=== PATIENT | female | born 1975 | race African-American/Black ===

== ENCOUNTER 2023-03-30 14:23 | Outpatient (CLI) | payer BC, SELFPAY ==
[2023-03-30 20:07] LABS: Hematocrit 37.4 % (37.0-47.0); Hemoglobin 11.6 g/dL (12.0-15.0); Mean Corpuscular Hemoglobin 27.6 pg (26-34); Mean Corpuscular Volume 88.8 fl (80-100); Mean Platelet Volume 11.1 fl (7.4-10.4); Platelet Count Result 278 k/mm3 (150-375); Red Blood Count 4.21 M/mm3 (4.2-5.4); White Blood Count 7.1 K/mm3 (4.5-10.0)
[2023-03-30 20:25] LABS: Alanine Aminotransferase 24 U/L (6-35); Albumin Level 4.2 g/dL (3.5-5.1); Alkaline Phosphatase 98 U/L (38-126); Anion Gap 2 mmol/L (8-16); Aspartate Amino Transferase 60 U/L (14-36); Bilirubin,Total 0.5 mg/dL (0.2-1.3); Blood Urea Nitrogen 11 mg/dL (7-17); Carbon Dioxide 31 mmol/L (22-30); Chloride 104 mmol/L (98-107); Cholesterol 263 mg/dL (0-200); Estimated Glomerular Filt Rate > 60; Glucose 96 mg/dL (65-110); HDL Direct 67 mg/dL; Potassium 3.7 mmol/L (3.4-5.0); Sodium 137 mmol/L (137-145); Triglycerides 116 mg/dL (<150)
[2023-03-30 20:36] LABS: LDL Cholesterol Direct 141 mg/dL
[2023-03-30 20:53] LABS: Thyroid Stimulating Hormone 0.919 uIU/mL (0.465-4.680)
== END 2023-03-30 14:24 | disposition home or self-care (01) ==
LOC: ANHGOSHLAB 14:24
PROVIDERS: PCP Family Medicine; Visit Provider Family Medicine
DX: E66.9 Obesity, unspecified (principal); Z79.899 Other long term (current) drug therapy
CPT/HCPCS: 36415; 80053; 80061; 84443; 85027

== ENCOUNTER 2024-08-30 14:24 | Outpatient (CLI) | payer OTHER, SELFPAY ==
--- NOTE | ~2024-08-30 | XR_ITS ---
Left ankle Technique: AP and lateral views were obtained. Clinical History: Pain Findings: No acute fracture or dislocation is seen. Osseous alignment is anatomic. Ankle mortise and other visualized joint spaces are preserved. Soft tissues are otherwise unremarkable. Impression: Unremarkable left ankle. Reviewed, dictated and finalized at location . Impression: Unremarkable left ankle.
--- NOTE | ~2024-08-30 | XR_ITS ---
Left foot Technique: AP and lateral views were obtained. Clinical History: Pain Findings: No acute fracture or dislocation is seen. Osseous alignment is anatomic. Joint spaces are p reserved without erosive or degenerative change. Soft tissues are unremarkable. Impression: Unremarkable left foot radiographs. Reviewed, dictated and finalized at [facility]. Impression: Unremarkable left foot radiographs.
== END 2024-08-30 14:25 | disposition home or self-care (01) ==
LOC: GOSHIMG 14:24
PROVIDERS: PCP Nurse Practitioner; Visit Provider Nurse Practitioner
DX: M79.672 Pain in left foot (principal); M25.572 Pain in left ankle and joints of left foot
CPT/HCPCS: 73600; 73620

== ENCOUNTER 2024-09-13 01:36 | Day surgery (SDC) | payer OTHER, SELFPAY ==
[2024-09-08 13:05] VITALS: BMI 33.2
--- OUTSIDE RECORDS SUMMARY | 2024-09-13 01:39 | XMS_ITS | Clinical Summary ---
Author Organization [facility] Address [address] [place] [address] Care Team Providers Care Securities Supervisor Name Role Phone Reji Kulkarni DO Primary Care Provider [phone] Source Comments [facility],non-owned Affiliates and Associated Physician Practices is amultiple site organization consisting of ambulatory clinics and hospital sitesin [place], [place], [place] and [place]. This disclosure is being madepursuant to the Care Everywhere program and may not contain all information available regarding this patient. Last updated 18.[facility] [employer] Allergies No known active allergies Medications * Be aware that medications may not be up to date on this document. Alwaysverify current medications with the patient. CABERGOLINE PO Take 0.5 Tabs by mouth every 7 days Active methylPREDNISol one (MEDROL DOSEPAK) 4 MG tablet 1 dose pack PO as directed 1 Each 04/25/2016 Active Active Problems Problem Noted Date Diagnosed Date Anxiety 02/09/2007 Enlarged thyroid 02/09/2007 Asthma 02/09/2007 Family History Medical History Relation Name Comments Hypertension Mother Relation Name Status Comments Mother Social History Tobacco Use Types Packs/Day Years Used Date Smoking Tobacco: Every Day Cigarettes Smokeless Tobacco: Never Alcohol Use Standard Drinks/Week Comments Yes 0 (1 standard drink = 0.6 oz pur e alcohol) Comments Unknown Sex and Gender Information Value Date Recorded Sex Assigned at Not on file Legal Sex Female 5:46 AM PLUCK TRIMMER Gender Identity Not on file Sexual Orientation Not on file Last Filed Vital Signs Vital Sign Reading Time Taken Comments Blood Pressure 118/78 11/06/2017 3:57 PM CDT Pulse 88 11/06/2017 3:57 PM CDT Temperature 37.2 C (98.9 F) 11/06/2017 3:57 PM CDT Respiratory Rate 16 11/06/2017 3:57 PM CDT Oxygen Saturation 98% 11/06/2017 3:57 PM CDT Inhaled Oxygen Concentration - - Weight 71.2 kg (157 lb) 11/06/2017 3:57 PM CDT Height 152.4 cm (5') 11/06/2017 3:57 PM CDT Body Mass Index 30.66 11/06/2017 3:57 PM CDT Plan of Treatment Health Maintenance Due Date Last Done Comments COLOGUARD (AGES 45-75) - COL ON CA SCREENING 1975 COLON MONITORING 1975 COLONOSCOPY - COLON CA SCREENING 1975 CT COLONOGRAPHY - COLON CA SCREENING 1975 Colorectal Cancer Screening 1975 FIT - COLON CA SCREENING 1975 FLEX SIG - COLON CA SCREENING 1975 LIPID TESTING 1975 MAMMOGRAM 1975 HIV SCREENING 1990 HEPATITIS C SCREENING 01/06/1993 DTAP/TDAP/TD VACCINES (1 - Tdap) 1994 HEPATITIS B VACCINE (1 of 3 - 19+ 3-dose series) 1994 SCREENING FOR DIABETES 11/06/2017 COVID-19 VACCINE (1 - 2023-2 5 season) 2024 DEPRESSION SCREENING 06/01/2024 ZOSTER VACCINE (1 of 2) 2025 INFLUENZA VACCINE (Season Ended) 2025 HIB VACCINE Aged Out No longer eligi ble based on patient's age to complete this topic HPV VACCINE Aged Out No longer eligi ble based on patient's age to complete this topic MENINGOCOCCAL (Group B) VACC INE SHARED DECISION-MAKING Aged Out No longer eligibl e based on patient's age to complete this topic MENINGOCOCCAL GROUPS A/C/Y/W VACCINE Aged Out No longer eligible b ased on patient's age to complete this topic Insurance ANTH Care Teams Securities Supervisor Relationship Specialty Start Date End Date Reji Kulkarni DO [address] [place] [address] PCP - General 01/17/09
--- OUTSIDE RECORDS SUMMARY | 2024-09-13 01:39 | XMS_ITS ---
Author Organization [facility] Address [address] [facility] [address] [place] [address] Care Team Providers Care Strip Machine Operator Name Role Phone Alejandra Bacon Unavailable [phone] zzzzMigration, zzzzProvider Unavailable Unav ailable REASON FOR VISIT EMR-Tristin Encounters Encounter Location Date Provider Diagnosis [facility] [address] [facility] [address] [place] [address] 03/21/2023 zzzzProvider zzzzMigration Plan Of Treatment Medication Medication Name Sig Start Date Stop Date Notes Meloxicam 15 MG take 1 tablet (15 mg ) by oral route once daily for 30 days Oral 1 for 30 07/30/2020 09/28/2020 Progress Notes * Ulysses CURTISDOB:1975 (49 yo F)Acc No.[id number]:03/21/2023 Patient: Ulysses GALINDO :1975 A ge:48 Y S ex:Female Address:[address] [place] [id number] * Refills Stop Meloxicam Tablet, 15 MG, Oral, 30, take 1 tablet (15 mg) by oral route once daily for 30 days, , 30 Subjective: * Chief Complaints: * E MR-Tristin * Medical History: * Surgical History: * Hospitalization/Major Diagno stic Procedure: * Medications: Objective: * Vitals: * Physical Examination: Assessment: Plan: * Treatment: * Procedure Codes: * true * Date: Generated for Tiagoi ng/Faxing/eTransmitting on: 0 09/13/2024 01:39 AM CDT
--- OUTSIDE RECORDS SUMMARY | 2024-09-13 01:39 | XMS_ITS | CONTINUITY OF CARE DOCUMENT ---
Author Name wyatt schneider Address Unknown Organization [facility] Address [address] [place] [address] Phone [phone] Care Team Providers Care Doctor Of Veterinary Medicine Name Role Phone Kush WRAY, Chris Unavailable [phone] INSURANCE PROVIDERS Payer name Policy type / Coverage type [employer] red constitution party ID [employer] OPEN ACCESS Other [id number]
--- OUTSIDE RECORDS SUMMARY | 2024-09-13 01:39 | XMS_ITS ---
Author Organization [facility] kacie Address [address] [facility] [address], [place] [address] Care Team Providers Care Account Executive Name Role Phone Alejandra Bacon Unavailable [phone] zzzzMigration, zzzzProvider Unavailable Unav ailable Allergies No Known Allergies REASON FOR VISIT EMR-[facility] Medications Medication SIG (Take, Route, Frequency, Duration) Notes Start Date End Date Status Flexeril 10 mg take 1 at bedtime - *Reorder fro m Medispan for eRx and Interaction Alerts* Active Cabergoline 0.5 MG take 1/2 tablet once a week Oral Active Ibuprofen 800 MG prn Oral Act sebastian Encounters Encounter Location Date Provider Diagnosis [facility] [address] [facility] [address] [place] [address] 03/22/2023 zzzzProvider zzzzMigration Plan Of Treatment No Information Progress Notes * Ulysses CURTISDOB:1975 (49 yo F)Acc No.[id number]:03/22/2023 Patient: Ulysses GALINDO :1975 A ge:48 Y S ex:Female Address:[address] [place] [address], [id number] Subjective: * Chief Complaints: * E MR-Tristin * Medical History: * Surgical History: T ubal Ectopic; 2020-07-30 * Hospitalization/Major Diagno stic Procedure: * Family History: M igrated Family History: Breast cancer , Rheumatoid arthritis , Thyroid disease . * Social History: M igrated Social History: M igrated Social History: :: No Children , Exercise :: None Lately , Marital Status :: , Substance Use :: Tobacco :: Current every day :: note : 07/30/2020 - 1 pack daily:: Quantity :: 1pk/day , Substance Use :: Wine :: Current some day :: note : 07/30/2020 - 2 drinks per week:: Quantity :: 2/week. * Medications: T akingFlexeril 10 mg take 1 at bedtime - , Notes to Pharmacist: *Reorder from [facility] for eRx and Interaction Alerts*Ibuprofen 800 MG Tablet prn Oral Cabergoline 0.5 MG Tablet take 1/2 tablet once a week Oral Taking Flexeril 10 mg take 1 at bedtime - , Notes to Pharmacist: *Reorder from [facility] for eRx and Interaction Alerts*Taking Ibuprofen 800 MG Tablet prn Oral Taking Cabergoline 0.5 MG Tablet take 1/2 tablet once a week Oral * Allergies: N .K.D.A.no[Allergies Verified] Objective: * Vitals: * Physical Examination: Assessment: Plan: * Treatment: * Procedure Codes: * true * Date: Generated for Fernanda escobedo/Steven/Teresa on: 0 09/13/2024 01:39 AM CDT
--- OUTSIDE RECORDS SUMMARY | 2024-09-13 01:39 | XMS_ITS | Clinical Summary ---
Author Organization [facility] Address [address] [place] [address] Phone Care Team Providers Care Visual Basic Programmer Name Role Phone Phu Gallegos MD Primary Care Provider [phone] Social History Tobacco Use Types Packs/Day Years Used Date Smoking Tobacco: Never Assessed Comments Unknown Sex and Gender Information Value Date Recorded Sex Assigned at Not on file Legal Sex Female 10:47 PM CDT Gender Identity Not on file Sexual Orientation Not on file Plan of Treatment Health Maintenance Due Date Last Done Comments Hepatitis C Virus (HCV) Screening 1975 TdaP Immunization 1975 Hepatitis B Immunization (1 of 3 - 19+ 3-dose series) 1994 Pap Smear 01/12/1996 Cervical Cancer Screening (CCS) 2005 HPV/Cotest 2005 Discussion re Starting/Frequ ency of Mammograms 2015 Colonoscopy 01/12/2020 Colorectal Cancer Screening 01/12/2020 Influenza Immunization (#1) 2024 SARS-COV-2 Immunization ( season) 2024 Respiratory Syncytial Virus (RSV) Immunization (Adult) (1 - 1-dose 75+ series) 2050 Meningococcal Immunization (ACWY) Aged Out No longer eligible based on patient's age to complete this topic Pneumococcal Immunization Combined Aged Out No longer eligible based on patient's age to complete this topic Rotavirus Immunization Aged Out No lo nger eligible based on patient's age to complete this topic Insurance [facility] Care Teams Visual Basic Programmer Relationship Specialty Start Date End Date Phu Gallegos MD PCP - General Internal Medicine 05/11/15
--- OUTSIDE RECORDS SUMMARY | 2024-09-13 01:39 | XMS_ITS | Clinical Summary ---
Author Organization [facility] [address] [place] [address] Care Team Providers Care News Producer Name Role Phone GirmamckenzieAry guy Primary Care Provider [phone] Allergies No known active allergies Medications ibuprofen (ADVIL,MOTRIN) 400 mg tablet take 1 tablet by oral route every 4 - 6 hours as needed 0 0 07/27/2013 Active rosuvastatin (CRESTOR) 10 mg tablet daily. Active fluticasone (FLONASE) 50 mcg/actuation nasal spray daily. Active cetirizine (ZyrTEC) 10 mg tablet daily. 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 Assessment & Plan (12/29/2019 2:38 PM CDT): Check prolactin Send rx for Cabergoline Consider MRI, if elevated prolactin Assessment & Plan (06/08/2018 1:51 PM AIRLINE STEWARDESS): Check prolactin levels Adjust dose of Cabergoline if indicated If higher prolactin, will consider repeating pituitary MRI Assessment & Plan (02/24/2017 2:52 PM CDT): Check prolactin levels Continue Cabergoline ( pt prefers to stay on it ) Enlarged thyroid 02/09/2007 Assessment & Plan (06/08/2018 1:50 PM AIRLINE STEWARDESS): Check TSH Ultrasound performed today Anxiety 02/09/2007 Asthma 02/09/2007 Encounters Date Type Department Care Team Description 08/18/2024 3:15 PM CDT - 08/18/2024 11:59 PM CDT Hospital Encounter [facility] [address] [place] [id number] Screening mammogram, encounter for Discharge Disposition: Discharge to home or self care from Last 3 Months Immunizations Immunization Administration Dates Next Due Tdap 03/30/2023 Medical History Medical History Date Comments Hx Other Medical Thyroid nodule ( had FNA done ) Smoking Family History Medical History Relation Name Comments Breast cancer Mother Thyroid disease Mother Thyroid dise ase; Breast cancer Paternal Grandmother Relation Name Status Comments Mother Paternal Grandmother Social History Tobacco Use Types Packs/Day Years Used Date Smoking Tobacco: Every Day Cigarettes Smokeless Tobacco: Current Alcohol Use Standard Drinks/Week Comments Yes 0 (1 standard drink = 0.6 oz pur e alcohol) PHQ-2 Answer Date Recorded PHQ-2 Total Score (If total score is 3 or more points, staff should administer the PHQ-9) 2 12/29/2019 Comments No Sex and Gender Information Value Date Recorded Sex Assigned at Not on file Legal Sex Female 3:10 AM AIRLINE STEWARDESS Gender Identity Not on file Sexual Orientation Not on file Obstetrics History Para Term AB IAB SAB Ectopic Multiple Livin g Live Births 7 0 0 7 0 0 Date Outcome GA Total Labor Labor/2nd/3rd Weight Sex Type Anes PTL Anastasia A1 A5 Name Clin AB AB AB AB AB AB AB Last Filed Vital Signs Vital Sign Reading Time Taken Comments Blood Pressure 150/93 06/21/2020 8:00 PM AIRLINE STEWARDESS Pulse 77 06/21/2020 8:00 PM AIRLINE STEWARDESS Temperature 36.5 C (97.7 F) 06/21/2020 3:34 PM AIRLINE STEWARDESS Respiratory Rate 18 06/21/2020 3:34 PM AIRLINE STEWARDESS Oxygen Saturation 100% 06/21/2020 8:00 PM AIRLINE STEWARDESS Inhaled Oxygen Concentration - - Weight 74.8 kg (165 lb) 08/18/2024 3:25 PM CDT Height 152.4 cm (5') 08/18/2024 3:25 PM CDT Body Mass Index 32.22 08/18/2024 3:25 PM CDT Plan of Treatment Health Maintenance Due Date Last Done Comments Colon Cancer Screening-Colonoscopy 1975 Hepatitis C Screening 1975 Hepatitis B Screening 1993 Pneumococcal vaccine <65 (1 of 2 - PCV) 1994 Cervical Cancer Screening 04/01/2019 04/01/2018 Regular Well Visit/Exam 18-64 04/01/2019 04/01/2018 Depression Screening 12/28/2020 12/29/2019, 02/25/20 17 Influenza Vaccine (#1) 2024 Breast Cancer Screening-Mammogram 08/18/2025 08/18/2024, 05/14/2023, 01/08/2021 DTaP/Tdap/Td Vaccine (2 - Td or Tdap) 03/30/2033 Procedures Procedure Name Priority Date/Time Associated Diagnosis Comments SCREENING MAMMOGRAM BILATERAL W KUN Schedule Routine, Read Routine (OP Routine) 08/18/2024 3:30 PM CDT Screening mammogram, encounter for IMAGING PAP AND HPV MRNA E6/E7 Routine 04/01/2018 9:59 AM CDT Well woman exam from Last 3 Months or Most Recently Relevant to Health Maintenance Results * Screening Mammogram Bilateral W Kun (08/18/2024 3:30 PM CDT) Anatomical Region Laterality Modality Breast Bilateral Mammography 08/18/2024 6:49 PM CDT Impressions 08/18/2024 6:49 PM CDT There is no mammographic evidence to suggest malignancy. The patient may continue screening mammography as per ACR guidelines. FINAL ASSESSMENT: BI-RADS Category 1: Negative. Electronically signed by: Radha Hopkins M.D. Narrative 08/18/2024 6:49 PM CDT EXAMINATION: BILATERAL SCREENING MAMMOGRAM WITH TOMOGRAPHY HISTORY: Screening. COMPARISON(S): 2022 and 2020 TECHNIQUE: Full-field 2D images and digital tomosynthesis images were obtained. CAD was utilized. BREAST PARENCHYMAL COMPOSITION: There are scattered areas of fibroglandular density. FINDINGS: There are no suspicious masses. No suspicious calcifications are seen. There is no unexplained architectural distortion. There is no skin thickening seen. There are no mammographically abnormal lymph nodes seen in the axillae or elsewhere. us Self Screening Mammogram IMG MAMMO PROCEDURES Fi nal Result * Imaging Pap and HPV mRNA E6/E7 (04/01/2018 9:59 AM CDT) Report status CANCELED [facility] - Comment:Result canceled by benson haque ancillary CLINICAL INFORMATION: [facility] [place] Comment:Information not prov ided LMP [facility] [place] Comment:INFORMATION NOT PROV IDED Previous Pap [facility] [place] Comment:INFORMATION NOT PROV IDED Prev. Bx [facility] [place] Comment:INFORMATION NOT PROV IDED SOURCE: [facility] [place] Comment:Information not prov ided Pap, specimen adequacy [facility] - Comment: Satisfactory for evaluation. Endocervical/transformation zone component absent. Age and/or menstrual status not provided Pap, general categorization [facility]CELED [facility] [place] Comment:Result canceled by benson haque ancillary HPV interp [facility] - Comment:Negative for intraep ithelial lesion or malignancy. Infection: [facility] - Comment: Shift in vaginal roseline suggestive of bacterial vaginosis. COMMENTS [facility] - Comment: This Pap test has been evaluated with computer assisted technology. Cosmetics Supervisor [facility] - Comment: MMW, CT(ASCP) CT screening location: [place] [address] [place] [address] Review document control specialist CANCELED [facility] - Comment:Result canceled by benson haque ancillary Pathologist CANCELED [facility] [place] Comment:Result canceled by benson haque ancillary Comment [facility] - Comment: EXPLANATORY NOTE: The Pap is a screening test for cervical cancer. It is not a diagnostic test and is subject to false negative and false positive results. It is most reliable when a satisfactory sample, regularly obtained, is submitted with relevant clinical findings and history, and when the Pap result is evaluated along with historic and current clinical information. Human papillomavirus RNA, High Risk E6/E7 Not Detected Not Detected [facility] [place] Comment: This test was performed using the APTIMA HPV Assay ([employer] This assay detects E6/E7 viral messenger RNA (mRNA) from 14 high-risk HPV types (16,18,31,33,35,39,45,51,52,56,58,59,66,68). The analytical performance characteristics of this assay have been determined by [facility] [employer] [facility]. The modifications have not been cleared or approved by the FDA. This assay has been validated pursuant to the CLIA regulations and is used for clinical purposes. Endocervical/vag inal 04/01/2018 9:59 AM CDT 04/02/2018 8:33 AM CDT Narrative Resulting Agency Comment Performing Organization Information: Site ID: [id number] Name: [facility] Address: [address] [place] [address] Director: Jed Short D.O., MPH Site ID: [id number] Name: [facility] Address: [address] [place] [address] Director: [place] Yin Mikayla Gil POLICE SERVICE TECHNICIAN LAB PATHOLOGY ORDERABLES Final R esult [facility] [place] [facility] [place] [facility] [place] from Last 3 Months or Most Recently Relevant to Health Maintenance Insurance [facility] [id number] Care Teams News Producer Relationship Specialty Start Date End Date Ary Crenshaw DO PCP - General 01/08/21
--- OUTSIDE RECORDS SUMMARY | 2024-09-13 01:39 | XMS_ITS | Referral Summary ---
Author Organization [facility] [address] [place] [id number] Care Team Providers Care Certified Medical Biller Name Role Phone Ary Crenshaw Primary Care Provider [phone] Encounters Date Type Department Care Team Description 08/18/2024 3:15 PM CDT - 08/18/2024 11:59 PM CDT Hospital Encounter [facility] [address] [place] [id number] Screening mammogram, encounter for Discharge Disposition: Discharge to home or self care from Last 3 Months Allergies No known active allergies Medications ibuprofen [...] prolactin Assessment & Plan (06/08/2018 1:51 PM BUSINESS TRANSFORMATION ANALYST): Check prolactin levels Adjust dose of Cabergoline if indicated If higher prolactin, will consider repeating pituitary MRI Assessment & Plan (02/24/2017 2:52 PM CDT): Check prolactin levels Continue Cabergoline ( pt prefers to stay on it ) Enlarged thyroid 02/09/2007 Assessment & Plan (06/08/2018 1:50 PM BUSINESS TRANSFORMATION ANALYST): Check TSH Ultrasound performed today Anxiety 02/09/2007 Asthma 02/09/2007 Immunizations Immunization Administration Dates Next Due Tdap 03/30/2023 Social History Tobacco Use Types Packs/Day Years [...] on file Legal Sex Female 3:10 AM BUSINESS TRANSFORMATION ANALYST Gender Identity Not on file Sexual Orientation Not on file Last Filed Vital Signs Vital Sign Reading Time Taken Comments Blood Pressure 150/93 06/21/2020 8:00 PM BUSINESS TRANSFORMATION ANALYST Pulse 77 06/21/2020 8:00 PM BUSINESS TRANSFORMATION ANALYST Temperature 36.5 C (97.7 F) 06/21/2020 3:34 PM BUSINESS TRANSFORMATION ANALYST Respiratory Rate 18 06/21/2020 3:34 PM BUSINESS TRANSFORMATION ANALYST Oxygen Saturation 100% 06/21/2020 8:00 PM BUSINESS TRANSFORMATION ANALYST Inhaled Oxygen Concentration - - Weight 74.8 kg (165 lb) 08/18/2024 3:25 PM CDT Height 152.4 cm (5') 08/18/2024 3:25 PM CDT Body Mass Index 32.22 08/18/2024 3:25 PM CDT Plan of Treatment Not on file Procedures Procedure Name Priority Date/Time Associated Diagnosis [...] CDT) Report status CANCELED [facility] Comment:Result canceled by t garland ancillary CLINICAL INFORMATION: [facility] Comment:Information not prov ided LMP [facility] Comment:INFORMATION NOT PROV IDED Previous Pap [facility] Comment:INFORMATION NOT PROV IDED Prev. Bx [facility] Comment:INFORMATION NOT PROV IDED SOURCE: [facility] Comment:Information not prov ided Pap, specimen adequacy [facility] Comment: Satisfactory for evaluation. Endocervical/transformation zone component absent. Age and/or menstrual status not provided Pap, general categorization [facility]CELED [facility] Comment:Result canceled by t garland ancillary HPV interp [facility] Comment:Negative for intraep ithelial lesion or malignancy. Infection: [facility] Comment: Shift in vaginal roseline suggestive of bacterial vaginosis. COMMENTS [facility] - Comment: This Pap test has been evaluated with computer assisted technology. Drill Press Set Up Operator Radial [facility] - Comment: MMW, CT(ASCP) CT screening location: [place] [address] [place] [address] Review house painter helper CANCELED [facility] - Comment:Result canceled by t he ancillary Pathologist CANCELED [facility] - Comment:Result canceled by t he ancillary Comment [facility] - Comment: EXPLANATORY NOTE: The Pap [...] High Risk E6/E7 Not Detected Not Detected [facility] [place] Comment: This test was performed using the APTIMA HPV Assay ([employer] This assay detects E6/E7 viral messenger RNA (mRNA) from 14 high-risk HPV types (16,18,31,33,35,39,45,51,52,56,58,59,66,68). The analytical performance characteristics of this assay have been determined by [facility]. The modifications have not been cleared or approved by the FDA. This assay has been validated pursuant to the CLIA regulations and is used for clinical purposes. Endocervical/vag inal 04/01/2018 9:59 AM CDT 04/02/2018 8:33 AM CDT Narrative Resulting Agency Comment Performing Organization Information: Site ID: [id number] Name: [facility] Address: [address] [address] Director: Jed Short D.O., MPH Site ID: [id number] Address: [address] [address] Director: [place] Yin Mikayla Gil NP LAB PATHOLOGY ORDERABLES Final R esult [facility] - [place] [facility] JOSE Pepper from Last 3 Months or Most Recently Relevant to Health Maintenance Insurance [facility] [id number] [facility] [id number] Care Teams Certified Medical Biller Relationship Specialty Start Date End Date Ary Crenshaw DO PCP - General 01/08/21
--- OUTSIDE RECORDS SUMMARY | 2024-09-13 01:40 | XMS_ITS | Patient Health Record ---
Author Organization [facility] Address [address] [place], [place] [id number] Care Team Providers Care Employee Relations Representative Name Role Phone Cayla ESCALANTE Reji Primary Care Provider Chirag Vela Unavailable [phone] Migration, Provider Unavailable Unavailable Reason For Referral No Information Medications Medication SIG (Take, Route, Frequency, Duration) Notes Start Date End Date Status Ibuprofen *Please review a nd pick correct strength-formulation from Medispan options. 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 Problem Thyroid nodule (211317943) Thyroid nodule (241.0) Active confirmed left Problem Tobacco use (155943508) TOBACCO USE DISORDER (305.1) Active confirmed Encounters Encounter Location Date Provider Diagnosis [facility] [address] [facility] [address] [place], [place] [id number] 05/14/2024 Provider Migration Plan Of Treatment No Information Insurance Providers Payer Name Payer Address Payer Phone Subscriber Number Group Number Insured Name Patient Relationship to Insured Coverage Start Date Coverage End Date [employer] [address] [place] [address] [id number] [employer] Self - patient is the insured Medical (General) History Medical History History ICD Code Pertinent Medical History: H istory of Allergies, Ear problems, Throat/Neck problems, Asthma, Thyroid problems, Anemia Surgical History Surgery Date(Month/Year) etopic 1994 invetro fertilization procedures
--- OUTSIDE RECORDS SUMMARY | 2024-09-13 01:40 | XMS_ITS | Patient Health Record ---
Author Organization [facility] Address [address] [place] [address] Care Team Providers Care Operating Room Coordinator Name Role Phone Alejandra Bacon Unavailable [phone] Allergies No Known Allergies Reason For Referral No Information Medications Medication SIG (Take, Route, Frequency, Duration) Notes Start Date End Date Status Flexeril 10 mg take 1 at bedtime - *Reorder fro m Medispan for eRx and Interaction Alerts* Active Cabergoline 0.5 MG take 1/2 tablet once a week Oral Active Ibuprofen 800 MG prn Oral Act sebastian Plan Of Treatment No Information Insurance Providers Payer Name Payer Address Payer Phone Subscriber Number Group Number Insured Name Patient Relationship to Insured Coverage Start Date [facility]age End Date [facility] [address] [place] [address] [id number] [employer] Self - patient is the insured Medical (General) History Surgical History Surgery Date(Month/Year) Tubal Ectopic; 2020-07-30
--- OUTSIDE RECORDS SUMMARY | 2024-09-13 01:40 | XMS_ITS | Data Portability ---
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 Studies ordered as below. Discussed plan with patient/caregiver , who expressed understanding. Follow up as noted below. [email or web address] Not available 08/05/2017 12:02:01 12/29/2017 12/29/2017 Education was provided on healthy nutrition, including a diet rich in fruits and vegetables, minimizing simple carbohydrates, salt, and saturated fats. Encouraged regular cardiovascular exercise such as walking at least 30 minutes daily, 5 times per week. Emphasized preventive health measures and educated pt on fall prevention and community-based lifestyle interventions to help reduce health risks and promote healthy living. Patient presented for follow up. Studies ordered as below. Discussed plan with patient/caregiver , who expressed understanding. Follow up as noted below. Not available 12/29/2017 16:31:15 01/04/2019 01/04/2019 Education was provided on healthy nutrition, including a diet rich in fruits and vegetables, minimizing simple carbohydrates, salt, and saturated fats. Encouraged regular cardiovascular exercise such as walking at least 30 minutes daily, 5 times per week. Not available 01/04/2019 17:15:33 Plan of Treatment Reminders Order Date Submit Date Provider Last Modified By Organization Details Last Modified Time Details Appointments None recorded. Lab TSH + free T4, serum 2018 019 [email or web address] Not available 9 08:53:09 T3, free, serum or plasma 2018 019 [email or web address] Not available 9 08:53:09 CMP, serum or plasma 2018 019 [email or web address] Not available 9 08:53:09 lipid panel w/ direct LDL, serum 2018 019 lcallison Not available 9 08:53:09 thiamine, quant, serum or plasma 2018 019 [email or web address] Not available 9 08:53:09 vitamin B6 (pyridoxin e), plasma 2018 019 [email or web address] Not available 9 08:53:09 vitamin B12, quant, blood 2018 019 lcallison Not available 9 08:53:09 CBC w/ auto diff 2018 019 lcallison Not available 9 08:53:09 TSH + free T4, serum 2017 018 lcallison Not available 8 08:24:55 T3, free, serum or plasma 2017 018 ALICIA Not available 8 07:28:59 BMP, blood 2017 018 lcallison Not available 8 08:24:55 lipid panel, blood 2017 018 ALICIA Not available 8 16:44:32 CK (creatine kinase), total, serum 2017 018 ALICIA Not available 8 07:28:59 ALT (alanine aminotrans ferase), serum or plasma 2017 018 ALICIA Not available 8 07:28:58 CMP, serum or plasma 2017 018 [facility], [address] [facility], [place], [address], 8 16:01:13 CBC w/ auto diff 2017 018 [facility], [address], [place], [address], 8 16:01:13 TSH + free T4, serum 2017 018 [facility], [address], [place], [address], 8 16:01:13 T3, free, serum or plasma 2017 018 [facility], [address], [place], [address], 8 16:01:13 lipid panel, serum 2017 018 [facility], [address], [place], [address], 8 16:01:13 CK (creatine kinase), total, serum 2017 018 [facility], [address], [place], [address], 8 16:01:13 Referral endocrinol ogy referral 2018 019 [place], [address] [facility], [place], [address], 9 08:52:[address] referral 2018 019 tian Foy, [address] [facility] , [address], [place], [address], 9 09:19:[address] referral 2018 019 tian Long, [address], [facility] [address], [place], [address], 9 08:52:10 endocrinol ogy referral 2018 019 [place], [address] [address] , [place], [address], 9 08:52:[address] referral 2017 018 [email or web address] Ade Monteiro, [address], [place] [address], [place], [address], 8 08:40:47 mammogram screening referral [address] (Radiology), [address] [place], [address], 8 16:01:13 ENT referral 2017 018 [facility], [address] [place] [address], [address], 8 16:01:[address] referral 2017 018 [email or web address] Ade Monteiro, [address], [address], [place], [address], 8 16:01:13 physical therapy neck referral [address], [address] [place] [address], [address], 8 16:01:13 physical therapist referral [address], [address] [place] [address], [address], 8 16:01:13 Procedures None recorded. Surgeries None recorded. Imaging US, thyroid 2018 019 [facility] ([facility]), [address] [place], [address], 9 08:54:49 US, thyroid 2017 018 [facility] ([facility]), [address] [place], [address], 8 08:29:15 CT, brain, w/o contrast [address] (Radiology), [address], [place], [address], 8 16:01:13 x-ray, shoulder 2015 016 [facility] Not available 8 16:01:13 Medication Orders meclizine 25 mg tablet [address] [facility], [address], [place], [place], [id number], 8 16:26:20 Zyrtec 10 mg tablet [address] [facility], [address], [place], [place], [id number], 8 16:01:13 fluticason e propionate 50 mcg/actuat ion nasal spray,susp ension [address] [facility]47177, [address], [place], [place], [id number], 8 16:01:13 Mucinex 600 mg tablet, extended release [address] [facility]64, [address], [place], [place], [id number], 8 16:26:13 Patient TargetsNo targets recorded. Patient Instructions Encounter Date Encounter Id Patient Instructions Last Modified By Organization Details Last Modified Time 12/29/2017 [id number] goiter: care instructions [facility] Not available 12/29/2017 16:44:23 medicare preventive services guide [facility] Not available 12/29/2017 16:44:23 advance care planning: care instructions [facility] Not available 12/29/2017 16:44:23 glucose and A1C goals Not available 12/29/2017 16:44:23 A healthy heart: care instructions Not available 12/29/2017 16:44:23 Quitting Tobacco : Care Instructions Not available 12/29/2017 16:44:23 smoking cessatio n counseling, greater than 3 minutes up to 10 minutes* [email or web address] Not available 01/05/2018 08:25:01 advised to quit smoking Not available 12/29/2017 16:44:23 advised to lose weight Not available 12/29/2017 16:44:23 01/04/2019 [id number] allergies: care instructions Not available 01/04/2019 17:30:13 managing your allergies: care instructions Not available 01/04/2019 17:30:13 goiter: care instructions Not available 01/04/2019 17:42:18 high cholesterol : care instructions Not available 01/04/2019 17:30:13 advised to lose weight Not available 01/04/2019 17:30:13 Reason for Referral Referring Physician: Phu Gallegos [facility], Encounter Date: 10/23/2015 Referring Physician: Phu Gallegos [facility], Encounter Date: 10/23/2015 ENT Referral for Vertigo Referring Physician: Opal Ramírez [facility], Encounter Date: 08/05/2017 Mammogram Screening Referral for Screening mammography Referring Physician: Opal Ramírez [facility], Encounter Date: 08/05/2017 Painter Airbrush Referral for Sc reening for malignant neoplasm of cervix Referring Physician: Opal Ramírez [facility], Encounter Date: 08/05/2017 Painter Airbrush Referral for Sc reening for malignant neoplasm of cervix Referring Physician: Phu Gallegos [facility], Encounter Date: 12/29/2017 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 Referring Physician: Phu Gallegos [facility], Encounter Date: 01/04/2019 Endocrinology Referral for P ituitary adenoma Referring Physician: Phu Gallegos [facility], Encounter Date: 01/04/2019 Psychologist Referral for Mi xed anxiety and depressive disorder Referring Physician: Phu Gallegos, Internal Medicine, Encounter Date: 01/04/2019 Painter Airbrush Referral for Sc reening for malignant neoplasm of cervix Referring Physician: Phu Gallegos, Internal Medicine, Encounter Date: 01/04/2019 Results Created Date Observation Date Name Description Value Unit Range Abnormal Flag Note LastModifiedBy Organization Detail LastModifiedTime 08/06/19 18 08/05/2017 CBC w/ auto diff white blood cell count 5.6 thous and/u L 3.5-10 .0 Not Available [place] [address] [place], [address], 08/06/2017 08:32:47 08/06/19 18 08/05/2017 CBC w/ auto diff red blood cell count 4.9 jody on/uL 3.5-5. 5 Not Available [place] [address] [place], [address], 08/06/2017 08:32:47 08/06/19 18 08/05/2017 CBC w/ auto diff hemoglobin 13.8 g/dL 11.5-1 6.5 Not Available [place] [place], [address], 08/06/2017 08:32:47 08/06/19 18 08/05/2017 CBC w/ auto diff hematocrit 43 % 35-55 Not Available [address] [address] [place], [address], 08/06/2017 08:32:47 08/06/19 18 08/05/2017 CBC w/ auto diff MCH 29 pg 25-35 Not Available [place] [address] [place], [address], 08/06/2017 08:32:47 08/06/19 18 08/05/2017 CBC w/ auto diff MCHC 32 g/dL 31-38 Not Available [place] [address] [address] [place], [address], 08/06/2017 08:32:47 08/06/19 18 08/05/2017 CBC w/ auto diff MCV 89 fL 75-100 Not Available [place] [address] [address] [place], [address], 08/06/2017 08:32:47 08/06/19 18 08/05/2017 CBC w/ auto diff RDW-CV 14 % 11-15 Not Available [place] [address] [place], [address], 08/06/2017 08:32:47 08/06/19 18 08/05/2017 CBC w/ auto diff neutrophils% 44.5 % Not Available [place] [address] [place], [address], 08/06/2017 08:32:47 08/06/19 18 08/05/2017 CBC w/ auto diff lymphocytes% 45.5 % Not Available [facility] [place] [address] [place], [address], 08/06/2017 08:32:47 08/06/19 18 08/05/2017 CBC w/ auto diff monocytes% 7.0 % Not Available [place] [address] [place], [address], 08/06/2017 08:32:47 08/06/19 18 08/05/2017 CBC w/ auto diff eosinophil % 2.3 % 0.0-7. 0 Not Available [facility] [place] [address] [place], [address], 08/06/2017 08:32:47 08/06/19 18 08/05/2017 CBC w/ auto diff basophil % 0.5 % 0.0-3. 0 Not Available [facility] [place] [address] [place], [address], 08/06/2017 08:32:47 08/06/19 18 08/05/2017 CBC w/ auto diff absolute neutrophils 2.5 cells /uL 1.5-7. 8 Not Available [place] [address] [address] [place], [address], 08/06/2017 08:32:47 08/06/19 18 08/05/2017 CBC w/ auto diff absolute lymphocytes 2.55 cells /uL 0.85-3 .90 Not Available [place] [address] [address] [place], [address], 08/06/2017 08:32:47 08/06/19 18 08/05/2017 CBC w/ auto diff absolute monocytes 0.4 cells /uL 0.2-1. 0 Not Available [place] [address] [address] [place], [address], 08/06/2017 08:32:47 08/06/19 18 08/05/2017 CBC w/ auto diff absolute eosinophils 0.1 cells /uL 0.0-0. 5 Not Available [place] [address] [address] [place], [address], 08/06/2017 08:32:47 08/06/19 18 08/05/2017 CBC w/ auto diff absolute basophils 0.0 cells /uL 0.0-0. 2 Not Available [place] [address] [address] [place], [address], 08/06/2017 08:32:47 08/06/19 18 08/05/2017 CBC w/ auto diff platelet count 252 thous and/u L 100-40 0 Testi ng Perfo rmed at: [facility] AT[facility], [place] [address] [address] , [place] Phone : [phone] Fax: Not Available [place] [address] [address] [place], [address], 08/06/2017 08:32:47 08/06/19 18 08/05/2017 CMP, serum or plasm a glucose 91 mg/dL 74-99 Not Available [place] [address] [place], [address], 08/06/2017 08:32:49 08/06/19 18 08/05/2017 CMP, serum or plasm a urea nitrogen, blood (BUN) 10 mg/dL 6-20 Not Available [place] [address] [place], [address], 08/06/2017 08:32:49 08/06/19 18 08/05/2017 CMP, serum or plasm a total bilirubin 0.4 mg/dL 0.0-1. 2 Not Available [place] [address] [place], [address], 08/06/2017 08:32:49 08/06/19 18 08/05/2017 CMP, serum or plasm a total protein 7.5 g/dL 6.6-8. 7 Not Available [place] [address] [place], [address], 08/06/2017 08:32:49 08/06/19 18 08/05/2017 CMP, serum or plasm a alanine aminotransfe rase (ALT) 25 U/L 0-33 Not Available [place] [address] [place], [address], 08/06/2017 08:32:49 08/06/19 18 08/05/2017 CMP, serum or plasm a alkaline phosphatase 66 U/L 40-130 Not Available [place] [address] [place], [address], 08/06/2017 08:32:49 08/06/19 18 08/05/2017 CMP, serum or plasm a aspartate aminotransfe rase (AST) 28 U/L 0-32 Not Available [place] [address] [place], [address], 08/06/2017 08:32:49 08/06/19 18 08/05/2017 CMP, serum or plasm a calcium 9.6 mg/dL 8.6-10 .2 Not Available [place] [address] [place], [address], 08/06/2017 08:32:49 08/06/19 18 08/05/2017 CMP, serum or plasm a albumin 4.6 g/dL 3.5-5. 2 Not Available [place] [address] [place], [address], 08/06/2017 08:32:49 08/06/19 18 08/05/2017 CMP, serum or plasm a CO2 30 mmol/ L 22-29 high Not Available [place] [address] [place], [address], 08/06/2017 08:32:49 08/06/1908/05/2017 CMP, serum or plasm a creatinine, serum 0.6 mg/dL 0.5-0. 9 Not Available [place] [address] [address] [place], [address], 08/06/2017 08:32:49 08/06/19 18 08/05/2017 CMP, serum or plasm a sodium, serum 142 mmol/ L 136-14 5 Not Available [place] [address] [place], [address], 08/06/2017 08:32:49 08/06/19 18 08/05/2017 CMP, serum or plasm a potassium, serum 3.9 mmol/ L 3.5-5. 1 Not Available [place] [address] [address] [place], [address], 08/06/2017 08:32:49 08/06/1908/05/2017 CMP, serum or plasm a chloride, serum 101 mmol/ L 98-107 Not Available [place] [address] [address] [place], [address], 08/06/2017 08:32:49 08/06/19 18 08/05/2017 CMP, serum or plasm a eGFR 126 >59 Persi stent reduc tion for 3 month s or more in an eGFR <60 mL/mi n/1.7 3 m2 defin es CKD. Patie nts with eGFR value s>/=6 0 mL/mi n/1.7 3 m2 may also have CKD if evide nce of persi stent protu nisuzie a is prese nt. Addit ional infor fanny bhandari may be found at www.k doqi. org. Not Available [facility] [place] [address] [address] [place], [address], 08/06/2017 08:32:49 08/06/19 18 08/05/2017 CK (crea nate kinas e), total , serum creatine kinase 120 U/L 0-170 Not Available [facility] [place] [address] [place], [address], 08/06/2017 08:32:51 08/06/19 18 08/05/2017 T3, free, serum or plasm a FT3 3.5 pg/mL 1.5-4. 1 Not Available [facility] [place] [address] [place], [address], 08/06/2017 08:32:53 08/06/19 18 08/05/2017 T4, free, serum FT4 1.41 NG/dL 0.93-1 .70 Not Available [facility] [place] [address] [place], [address], 08/06/2017 08:32:55 08/06/19 18 08/05/2017 lipid panel , serum trigylceride s 98 mg/dL 0-150 Not Available [facility] [place] [address] [place], [address], 08/06/2017 08:32:57 08/06/19 18 08/05/2017 lipid panel , serum cholesterol 268 mg/dL 0-200 high Not Available [place] [address] [address] [place], [address], 08/06/2017 08:32:57 08/06/19 18 08/05/2017 lipid panel , serum uhdl 82 mg/dL 45-65 high Not Available [facility] [place] [address] [place], [address], 08/06/2017 08:32:57 08/06/19 18 08/05/2017 lipid panel , serum LDL, calculated 166 mg/dL 0-100 high Not Available [place] [address] [place], [address], 08/06/2017 08:32:57 08/06/19 18 08/05/2017 lipid panel , serum LDL/HDL ratio 2 mg/dL 0-5 Not Available [place] [address] [place], [address], 08/06/2017 08:32:57 08/06/19 18 08/05/2017 lipid panel , serum VLDL 19.6 mg/dL 5.0-40 .0 Not Available [place] [address] [place], [address], 08/06/2017 08:32:57 08/06/19 18 08/05/2017 lipid panel , serum cholesterol/ HDL ratio 3.27 0.00-5 .00 Not Available [place] [address] [place], [address], 08/06/2017 08:32:57 08/06/1908/05/2017 TSH, serum or plasm a TSH 0.70 ??IU/ mL 0.27-4 .20 Not Available [place] [address] [place], [address], 08/06/2017 08:32:59 12/30/19 18 12/29/2017 ALT (caroline ine amino trans feras e), serum or plasm a alanine aminotransfe rase (ALT) 21 U/L 0-33 Not Available [place] [address] [place], [address], 12/30/2017 07:28:58 12/30/19 18 12/29/2017 BMP, serum or plasm a glucose 79 mg/dL 74-99 Not Available [place] [address] [place], [address], 12/30/2017 07:28:59 12/30/19 18 12/29/2017 BMP, serum or plasm a urea nitrogen, blood (BUN) 6 mg/dL 6-20 Not Available [place] [address] [place], [address], 12/30/2017 07:28:59 12/30/19 18 12/29/2017 BMP, serum or plasm a calcium 9.4 mg/dL 8.6-10 .2 Not Available [facility] [place] [address] [place], [address], 12/30/2017 07:28:59 12/30/1912/29/2017 BMP, serum or plasm a CO2 27 mmol/ L 22-29 Not Available [facility] [place] [address] [place], [address], 12/30/2017 07:28:59 12/30/19 18 12/29/2017 BMP, serum or plasm a creatinine, serum 0.6 mg/dL 0.5-0. 9 Not Available [facility] [place] [address] [place], [address], 12/30/2017 07:28:59 12/30/19 18 12/29/2017 BMP, serum or plasm a sodium, serum 142 mmol/ L 136-14 5 Not Available [place] [address] [place], [address], 12/30/2017 07:28:59 12/30/19 18 12/29/2017 BMP, serum or plasm a potassium, serum 4.2 mmol/ L 3.5-5. 1 Not Available [facility] [place] [address] [place], [address], 12/30/2017 07:28:59 12/30/19 18 12/29/2017 BMP, serum or plasm a chloride, serum 101 mmol/ L 98-107 Not Available [facility] [place] [address] [place], [address], 12/30/2017 07:28:59 12/30/19 18 12/29/2017 BMP, serum or plasm a eGFR 112 >59 Persi stent reduc tion for 3 month s or more in an eGFR <60 mL/mi n/1.7 3 m2 defin es CKD. Patie nts with eGFR value s>/=6 0 mL/mi n/1.7 3 m2 may also have CKD if evide nce of persi stent protu niuri a is prese nt. Addit ional infor fanny thony may be found at www.k doqi. org. Not Available [place] [address] [address] [place], [address], 12/30/2017 07:28:59 12/30/19 18 12/29/2017 CK (crea nate kinas e), total , serum creatine kinase 126 U/L 0-170 Not Available [place] [address] [place], [address], 12/30/2017 07:28:59 12/30/19 18 12/29/2017 T3, free, serum or plasm a FT3 2.9 pg/mL 1.5-4. 1 Not Available [place] [address] [address] [place], [address], 12/30/2017 07:28:59 12/30/19 18 12/29/2017 T4, free, serum FT4 1.32 NG/dL 0.93-1 .70 Not Available [place] [address] [place], [address], 12/30/2017 07:29:00 12/30/19 18 12/29/2017 lipid panel , serum trigylceride s 129 mg/dL 0-150 Not Available [place] [address] [place], [address], 12/30/2017 07:29:00 12/30/19 18 12/29/2017 lipid panel , serum cholesterol 275 mg/dL 0-200 high Not Available [facility] [address] [place], [address], 12/30/2017 07:29:00 12/30/19 18 12/29/2017 lipid panel , serum uhdl 80 mg/dL 45-65 high Not Available [facility] [place] [address] [place], [address], 12/30/2017 07:29:00 12/30/19 18 12/29/2017 lipid panel , serum LDL, calculated 169 mg/dL 0-100 high Not Available [facility] [place] [address] [place], [address], 12/30/2017 07:29:00 12/30/19 18 12/29/2017 lipid panel , serum LDL/HDL ratio 2 mg/dL 0-5 Not Available [facility] [place] [address] [place], [address], 12/30/2017 07:29:00 12/30/19 18 12/29/2017 lipid panel , serum VLDL 25.8 mg/dL 5.0-40 .0 Not Available [facility] [place] [address] [place], [address], 12/30/2017 07:29:00 12/30/19 18 12/29/2017 lipid panel , serum cholesterol/ HDL ratio 3.44 0.00-5 .00 Not Available [facility] [place] [address] [place], [address], 12/30/2017 07:29:00 12/30/19 18 12/29/2017 TSH, serum or plasm a TSH 0.88 ??IU/ mL 0.27-4 .20 Not Available [facility] [place] [address] [place], [address], 12/30/2017 07:29:00 10/19/19 16 x-ray , cervi shane spine No observ ation record ed. [address] (Imaging) [address] [place], [address], 12/15/2017 16:01:13 08/14/19 18 08/13/2017 CT, head, w/o contr ast No observ ation record ed. [address] [place], [address], 12/29/2017 16:44:28 08/14/19 18 08/13/2017 CT, head, w/o contr ast No observ ation record ed. [address] [place], [address], 12/29/2017 16:44:28 08/14/19 18 08/13/2017 MAMMO , scree dominik, digit al, bilat eral No observ ation record ed. [address] [place], [address], 12/29/2017 16:44:28 08/14/19 18 08/13/2017 MAMMO , scree dominik, digit al, bilat eral No observ ation record ed. [address] [place], [address], 12/29/2017 16:44:28 08/19/19 18 08/13/2017 CT, brain , w/o contr ast No observ ation record ed. [address] (Radiology) [address] [place], [address], 12/29/2017 16:44:28 08/19/19 18 08/13/2017 MAMMO , scree dominik, digit al, bilat eral No observ ation record ed. [address] [place], [address], 12/29/2017 16:44:28 06/04/19 19 06/03/2018 XR, shoul jocelyne No observ ation record ed. [address] (Imaging) [address] [place], [address], 06/14/2018 09:57:27 02/15/20 19 02/14/2019 US, thyro id No observ ation record ed. [email or web address] [facility] (Imaging) [address] [place], [address], 02/24/2019 09:52:49 06/10/19 21 06/10/2020 XR, hip + pelvi s, unila teral No observ ation record ed. [address] [place], [address], 06/11/2020 01:03:13 06/10/19 21 06/10/2020 XR, lumbo sacra l spine No observ ation record ed. [address] [place], [address], 06/11/2020 01:03:40 06/21/19 21 06/21/2020 XR, wrist No observ ation record ed. [facility] [address] [place], [address], 06/25/2020 17:00:04 06/21/19 21 06/21/2020 US, wrist No observ ation record ed. [facility] [address] [place], [address], 06/25/2020 17:00:41 06/21/19 21 06/21/2020 MRI, wrist , w/wo contr ast No observ ation record ed. [facility] [address] [place], [address], 06/25/2020 17:01:08 09/02/19 25 09/01/2024 XR, chest , 2 view No observ ation record ed. [address] [place], [address], 09/04/2024 15:08:25 09/02/19 25 09/01/2024 XR, sacro iliac joint (s) No observ ation record ed. [address] [place], [address], 09/04/2024 15:08:02 09/03/19 25 09/01/2024 XR, cervi shane spine No observ ation record ed. [email or web address] [facility] [address] [place], [address], 09/08/2024 11:35:57 09/03/19 25 09/01/2024 XR, lumba r spine No observ ation record ed. [address] [place], [address], 09/04/2024 15:07:11 09/03/19 25 09/01/2024 XR, hand, 2 view No observ ation record ed. [address] [place], [address], 09/04/2024 15:06:46 Result Notes None recorded. 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 Procedures Surgical History Date Name Laterality Status Provider Name and Address Organization Details Recorded Time 04/01/20 18 Date of Last Pap Smear completed [facility] 01/04/2019 17:13:59 08/14/19 18 Date of Last Mammogram completed [facility] 12/29/2017 16:07:28 Oophorectomy completed [facility] 12/23/2017 08:48:20 Imaging Results Imaging Date Name Status LastModified by Organiz ation Details LastModified Time 10/19/2015 x-ray, cervical spine completed [address] (Imaging) [address] [place], [address], 12/15/2017 16:01:13 08/13/2017 CT, head, w/o contrast completed [address] [place], [address], 12/29/2017 16:44:28 08/13/2017 CT, head, w/o contrast completed [address] [place], [address], 12/29/2017 16:44:28 08/13/2017 MAMMO, screening, digital, bilateral completed [address] [place], [address], 12/29/2017 16:44:28 08/13/2017 MAMMO, screening, digital, bilateral completed [address] [place], [address], 12/29/2017 16:44:28 08/13/2017 CT, brain, w/o contrast completed [address] (Radiology) [address] [place], [address], 12/29/2017 16:44:28 08/13/2017 MAMMO, screening, digital, bilateral completed [address] [place], [address], 12/29/2017 16:44:28 06/03/2018 XR, shoulder completed [email or web address] [facility] (Imaging) [address] [place], [address], 06/14/2018 09:57:27 02/14/2019 US, thyroid completed [email or web address] [facility] (Imaging) [address] [place], [address], 02/24/2019 09:52:49 06/10/2020 XR, hip + pelvis, unilateral completed [address] [place], [address], 06/11/2020 01:03:13 06/10/2020 XR, lumbosacral spine completed [address] [place], [address], 06/11/2020 01:03:40 06/21/2020 XR, wrist completed [facility] [address] [place], [address], 06/25/2020 17:00:04 06/21/2020 US, wrist completed [facility] [address] [place], [address], 06/25/2020 17:00:41 06/21/2020 MRI, wrist, w/wo contrast completed [facility] [address] [place], [address], 06/25/2020 17:01:08 09/01/2024 XR, chest, 2 view completed [address] [place], [address], 09/04/2024 15:08:25 09/01/2024 XR, sacroiliac joint(s) completed [address] [place], [address], 09/04/2024 15:08:02 09/01/2024 XR, cervical spine completed [address] [place], [address], 09/08/2024 11:35:57 09/01/2024 XR, lumbar spine completed [address] [place], [address], 09/04/2024 15:07:11 09/01/2024 XR, hand, 2 view completed [email or web address] [address] [place], [address], 09/04/2024 15:06:46 Procedure Notes None recorded. Medical Equipment None Reported. Allergies No known drug allergies Medications Name Sig Start Date Stop Date Status Note LastModified by Organization Details LastModified Time cetirizine 10 mg tablet TAKE 1 TABLET BY MOUTH EVERY DAY AT BEDTIME active Not Available Not Available No t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
--- OUTSIDE RECORDS SUMMARY | 2024-09-13 01:40 | XMS_ITS ---
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 If intended option is not shown, discontinue and re-order from Quick Search* Active Encounters Encounter Location Date Provider Diagnosis [facility] [address] [facility] [address] [place], [place] [id number] 05/14/2024 Provider Migration Plan Of Treatment No Information Progress Notes * Ulysses CURTIS DDOB:[birth year] (49 yo F)Acc No.[id number]:05/14/2024 Patient: Ulysses GALINDO Provider: Anamika Torres :1975 A ge:49 Y S ex:Female Date:05/14/2024 Address:[address] [place], [place] [id number] Pcp:Reji Kulkarni DO Subjective: * Chief Complaints: * 1 . Multum To Medispan Conversion Encounter. * Medical History: * Medications: T aking Ibuprofen , Notes to Pharmacist: *Please review and pick correct strength-formulation from Medispan options. If intended option is not shown, discontinue and re-order from Quick Search* Objective: * Vitals: * Physical Examination: Assessment: Plan: * Treatment: * * Electronic signature of Prov ider Migration on 09/13/2024 at 01:40 AM CDT Sign off status: Pending * Provider: Anamika daigle Migration Date: 1 07/15/2023 Generated for Fernanda escobedo/Steven/Teresa on: 0 09/13/2024 01:40 AM CDT
[2024-09-13 10:47] VITALS: BP 131/83; PULSE 100; RESP 16; TEMP 36.7; O2SAT 100
[2024-09-13] MEDS: LACTATED RINGERS 1,000 ML 150 ML IV CONT (10:58)
--- NOTE | 2024-09-13 10:58 | P.PNAN_ITS ---
Anes - Initial Pre Proc Eval Procedure: Operation Date: 09/13/24 11:30 Proposed Procedures p Screening Colonoscopy - Demarcus Campos MD Date/Time: 09/13/24 10:58 Surgeon: Demarcus Campos MD Pre Op Diagnosis: Encounter for screening for malignant neoplasm of Patient Data Age: 49 Gender: F Height: 1.52 m Weight: 76.2 kg Last Vital Signs Temp 36.7 C 09/13/24 10:47 Pulse 100 09/13/24 10:47 Resp 16 09/13/24 10:47 BP 131/83 09/13/24 10:47 Pulse Ox 100 09/13/24 10:47 O2 Del Method Room Air 09/13/24 10:47 Allergies Allergy/AdvReac Type Severity Reaction Status Date / Time egg Allergy Mild Nausea Verified 09/13/24 10:43 Home Medications ?Medication ?Instructions ?Recorded ?Confirmed ?Type cyclobenzaprine 10 mg tablet See Rx Instructions .Route 03/30/23 09/13/24 Rx .COMPLEX #30 tabs meclizine 25 mg tablet 25 mg PO TID PRN dizziness #30 tabs 05/01/23 09/13/24 Rx cabergoline 0.5 mg tablet 0.5 mg PO .COMPLEX #90 tabs 08/30/24 09/13/24 Rx sertraline 25 mg tablet 25 mg PO DAILY #30 tabs 08/30/24 09/13/24 Rx tizanidine 2 mg tablet 2 mg PO TID 09/08/24 09/13/24 History Patient hx anesthesia problems: none Family hx anesthesia problems: none Results Review: All pre-operative results and documents have been reviewed as part of the pre- operative evaluation. [facility] Past Medical History Medical History History of in vitro fertilization Ectopic Thyroid disease Back pain Arthritis Depression Anxiety Asthma Anemia Family History Family History Grandparent Heart disease Hypertension Glaucoma Alcoholism Asthma Back pain Breast cancer Mother Breast cancer Social History Social History Social History: Caffeine-coffee/iced tea Smoking packs per day: 1 Smoking cigarettes per day: 20.0 Years smoked: 20 Smoking pack-years: 20.00 Smoking status: Current every day smoker Tobacco type: cigarettes Alcohol intake: current Drinks per week: 2 Alcohol use details: glass of wine Substance use: current Substance use type: marijuana Do You Feel Safe in your Home?: Yes Lack of Transportation: No Lack of Food: Never True Current Housing: I Have Housing Concerned About Future Housing: No Difficulty Paying Gas/Electric Bills: No Difficulty Paying for Meds: No Currently Unemployed: No Education: Associate Degree Difficulty w/ Childcare or Family Care: No Living arrangements: with family Spiritual care concerns: No Anes - Eval Final PreProcedure Day of Procedure 09/13/24 10:58 Patient weight: obese Heart: regular rate and rhythm Lungs: clear to auscultation Airway: Mallampati scale class II Neurological: alert and oriented Last oral intake: >/= 8 hours ASA classification: III Emergent: no Anesthetic plan: proceed Anesthesia type and monitoring: general GIVS and standard monitoring Results Review: All pre-operative results and documents have been reviewed as part of the pre- operative evaluation. Informed Consent: The patient's anesthetic plan and its attendant risks and benefits were discussed with the patient/family/POA. Questions were solicited and answers provided to the satisfaction of the patient/family/POA.
--- NOTE | 2024-09-13 11:23 | PM.HPGS ---
History of Present Illness History of Present Illness Consent: Risks, benefits, and alternatives have been discussed and questions answered. Patient agrees to proceed with procedure. Chief complaint: Encounter for screening for malignant neoplasm of Narrative: Ulysses Power is a 49 year old female here for first screening colonoscopy Review of Systems Review of Systems: All systems reviewed & are unremarkable except as noted in HPI and below PMFSH Past Medical History Medical History History of in vitro fertilization Ectopic Thyroid disease Back pain Arthritis Depression Anxiety Asthma Anemia Family History Family History Grandparent Heart disease Hypertension Glaucoma Alcoholism Asthma Back pain Breast cancer Mother Breast cancer Social History Social History Social History: Caffeine-coffee/iced tea Smoking packs per day: 1 Smoking cigarettes per day: 20.0 Years smoked: 20 Smoking pack-years: 20.00 Smoking status: Current every day smoker Tobacco type: cigarettes Alcohol intake: current Drinks per week: 2 Alcohol use details: glass of wine Substance use: current Substance use type: marijuana Do You Feel Safe in your Home?: Yes Lack of Transportation: No Lack of Food: Never True Current Housing: I Have Housing Concerned About Future Housing: No Difficulty Paying Gas/Electric Bills: No Difficulty Paying for Meds: No Currently Unemployed: No Education: Associate Degree Difficulty w/ Childcare or Family Care: No Living arrangements: with family Spiritual care concerns: No Meds Home Medications and Allergies Home Medications ?Medication ?Instructions ?Recorded ?Confirmed ?Type cyclobenzaprine 10 mg tablet See Rx Instructions .Route 03/30/23 09/13/24 Rx .COMPLEX #30 tabs meclizine 25 mg tablet 25 mg PO TID PRN dizziness #30 tabs 05/01/23 09/13/24 Rx cabergoline 0.5 mg tablet 0.5 mg PO .COMPLEX #90 tabs 08/30/24 09/13/24 Rx sertraline 25 mg tablet 25 mg PO DAILY #30 tabs 08/30/24 09/13/24 Rx tizanidine 2 mg tablet 2 mg PO TID 09/08/24 09/13/24 History Allergies Allergy/AdvReac Type Severity Reaction Status Date / Time egg Allergy Mild Nausea Verified 09/13/24 10:43 Vital Signs Vital Signs - 24 hr 09/13/24 10:47 Temperature 98.1 F Pulse Rate 100 Respiratory Rate 16 Blood Pressure 131/83 Pulse Oximetry 100 Oxygen Delivery Room Air Exam Const: General: comfortable and no acute distress HENMT: Face/Nose/Sinus: Normal nares present Eyes: General: appearance normal, both eyes and all related structures Neck: Neck: no JVD Resp: Auscultation: clear to auscultation bilaterally Cardio: Rate: regular rate Rhythm: regular rhythm GI: Inspection: non-distended GI Palp: Yes Soft to palpation Skin: General skin exam: normal color Neuro: General: gait normal Speech: normal speech Extrem: General: normal to inspection Psych: Mental Status: mental status grossly normal Assessment and Plan Assessment and plan (1) Colon cancer screening: Code(s): Z12.11 - Encounter for screening for malignant neoplasm of colon Status: Acute Assessment and Plan: colonoscopy
[2024-09-13 11:41] VITALS: BP 108/76; PULSE 75; RESP 20; O2SAT 100
[2024-09-13 11:51] VITALS: BP 114/83; PULSE 80; RESP 17; O2SAT 100
[2024-09-13 12:01] VITALS: BP 127/81; PULSE 72; RESP 13; O2SAT 100
== END 2024-09-13 12:07 | disposition home or self-care (01) ==
PROVIDERS: PCP Nurse Practitioner; Referring Provider Nurse Practitioner; Visit Provider Internal Medicine Gastroenterology
PROC: 0DJD8ZZ Inspection of Lower Intestinal Tract, Via Natural or Artificial Opening Endoscopic (ICD-10-PCS; CPT 45378; principal; 2024-09-13 11:30)
DX: Z12.11 Encounter for screening for malignant neoplasm of colon (principal); J45.909 Unspecified asthma, uncomplicated; D64.9 Anemia, unspecified; E07.9 Disorder of thyroid, unspecified; F32.A Depression, unspecified; F41.9 Anxiety disorder, unspecified; M19.90 Unspecified osteoarthritis, unspecified site; F17.210 Nicotine dependence, cigarettes, uncomplicated; F12.90 Cannabis use, unspecified, uncomplicated; E66.9 Obesity, unspecified; Z68.32 Body mass index [BMI] 32.0-32.9, adult; Z80.3 Family history of malignant neoplasm of breast; Z82.49 Family history of ischemic heart disease and other diseases of the circulatory system
CPT/HCPCS: 45378; J2704; J7120